=== PATIENT | female | born 1955 | race Caucasian/White ===

== ENCOUNTER → 2020-09-23 | Outpatient (CLI) | payer BC | LOC: KOH-I 14:00 | DX: Z12.2 Encounter for screening for malignant neoplasm of respiratory organs (principal); F17.210 Nicotine dependence, cigarettes, uncomplicated; R91.8 Other nonspecific abnormal finding of lung field | CPT/HCPCS: 71271 ==

== ENCOUNTER 2021-02-19 18:18 | Emergency (ER) | payer BC ==
[2021-02-19 19:53] LABS: HEMOGLOBIN 12.3 gm/dl (12.3-15.3); RED BLOOD COUNT 3.85 M/UL (4.00-5.10); WHITE BLOOD COUNT 7.7 K/UL (4.5-11.0)
[2021-02-19 20:12] LABS: BUN/CREATININE RATIO 12 (0-10)
[2021-02-19] MEDS ORDERED: DOXYCYCLINE HY100 MG PO (20:32)
== END 2021-02-19 21:06 | disposition home or self-care (01) ==
LOC: ER1 18:18
PROVIDERS: Family Medicine
DX: L03.116 Cellulitis of left lower limb (principal); R21 Rash and other nonspecific skin eruption; F17.200 Nicotine dependence, unspecified, uncomplicated; Z20.822 Contact with and (suspected) exposure to COVID-19
CPT/HCPCS: 73590; 80048; 85025; 86140; 87081; 87880; 99283; U0003

== ENCOUNTER → 2021-03-04 | Outpatient (CLI) | payer BC ==
[~2021-03-04] MED LIST: DOXYCYCLINE HY100 MG PO
== END ==
LOC: WCC 09:08
DX: I87.312 Chronic venous hypertension (idiopathic) with ulcer of left lower extremity (principal); I87.2 Venous insufficiency (chronic) (peripheral); Z72.0 Tobacco use
CPT/HCPCS: 97597

== ENCOUNTER → 2021-11-04 | Outpatient (CLI) | payer BC | LOC: KOH-I 10-27 16:00 | DX: F17.210 Nicotine dependence, cigarettes, uncomplicated (principal); R91.1 Solitary pulmonary nodule | CPT/HCPCS: 71271 ==

== ENCOUNTER → 2021-11-25 | Outpatient (CLI) | payer BC | LOC: KOH-I 08:30 | DX: K76.89 Other specified diseases of liver (principal) | CPT/HCPCS: 76705 ==